=== PATIENT | male | born 2000 | race Caucasian/White ===

== ENCOUNTER 2019-07-09 14:38 | Outpatient (CLI) | payer OTHER, SELFPAY ==
--- NOTE | ~2019-07-09 | XR_ITS ---
XR foot RT min 3V DATE: 07/09/2019 15:02 INDICATION: Smashing injury of right foot. Dorsal pain, first toe/metatarsal area TECHNIQUE: 5 views COMPARISON: None FINDINGS: No fracture or dislocation, periosteal reaction or bone destruction. IMPRESSION: Negative Reviewed, dictated and finalized at location A. IMPRESSION: Negative
== END 2019-07-09 14:39 | disposition home or self-care (01) ==
PROVIDERS: PCP Family Medicine; Visit Provider Family Medicine
DX: S99.921A Unspecified injury of right foot, initial encounter (principal)
CPT/HCPCS: 73630

== ENCOUNTER 2021-01-26 16:56 | Emergency (ER) | payer OTHER, SELFPAY ==
[2021-01-26 17:06] VITALS: BP 142/98; PULSE 103; RESP 16; TEMP 37.1; O2SAT 100
--- NOTE | 2021-01-26 17:19 | ED.URI ---
HPI - URI/Sore Throat General Chief Complaint: Upper Respiratory Infection Stated Complaint: SORE THROAT Source: patient and RN notes reviewed Mode of arrival: ambulatory History of Present Illness HPI Narrative: This is a 20-year-old male who presented to urgent care with complaints a sore throat. Patient notes that the left side of his throat hurts more than the right he did take Tylenol with ibuprofen and DayQuil NyQuil with no relief. He also notes that his stepsister son was recently diagnosed with strep. Patient strep negative. The patient denies SOB, CP, palpitation, extremity numbness, lightheadedness, dizziness, constipation, diarrhea, chills, or fever. MD elicited complaint: sore throat Related Data Allergies Allergy/AdvReac Type Severity Reaction Status Date / Time No Known Allergies Allergy Mild Verified 07/09/19 13:22 Review of Systems Review of Systems: A 14 organ system Review of Systems was performed and pertinent positives included in the HPI, otherwise remaining ROS is negative. [facility] Past Medical History Medical History Asthma Unspecified injury of nose, initial encounter 02/06/2017 Family History Family History (Updated 01/26/21 @ 17:20 by SAGE Ochoa) Other Family history non-contributory No pertinent family history Social History Social History Smoking status: Never smoker Second hand tobacco smoke exposure: No Alcohol intake: never Alcohol use details: 6 beers consumed monthly Substance use: never Substance use type: does not use Exam Narrative: GENERAL: This is a well-nourished, well-developed patient, in no apparent distress. HEAD: normocephalic, atraumatic. EYES: PERRL. Sclera clear/white. Vision is grossly intact. EARS: External ears normal, auditory canals clear and without drainage, TMs normal without perforation. Hearing grossly intact. NOSE: External nose normal with no obvious nasal discharge, nares without redness, no rhinorrhea. THROAT: Mucous membranes moist, posterior pharynx edema with erythematous NECK: Neck supple, non-tender without lymphadenopathy, masses or thyromegaly. CARDIOVASCULAR: Regular rate and rhythm without murmurs, gallops, or rubs. RESPIRATORY: Clear to auscultation. Breath sounds equal bilaterally. No wheezes, rales, or rhonchi. GASTROINTESTINAL: Abdomen soft, non-tender, nondistended. Bowel sounds are active. No hepato-splenomegaly, or palpable masses. No guarding. SKIN: warm, intact with no suspicious lesions or rash, good texture and turgor. NEURO: awake, alert, and oriented to person, place and time. There were no obvious focal neurologic abnormalities. Steady gait EXTREMITIES: Normal range of motion. No edema. No calf tenderness. Negative Homans sign bilaterally. BACK: Nontender without deformity or crepitance. No flank tenderness. Course Course Emergency Course: Patient will be treated for otitis with amoxicillin 875 mg twice daily x7 days he has also been exposed to strep throat, amoxicillin will also treat strep throat even though his test is negative Vital Signs Vital signs: Vital Signs Temperature 98.7 F 01/26/21 17:06 Pulse Rate 103 H 01/26/21 17:06 Respiratory Rate 16 01/26/21 17:06 Blood Pressure 142/98 H 01/26/21 17:06 Pulse Oximetry 100 01/26/21 17:06 Temperature 98.7 F 01/26/21 17:06 Pulse Rate 103 H 01/26/21 17:06 Respiratory Rate 16 01/26/21 17:06 Blood Pressure 142/98 H 01/26/21 17:06 Pulse Oximetry 100 01/26/21 17:06 MDM - URI/Sore Throat Differential Diagnosis Differential diagnosis: Likely upper respiratory infection, sinusitis and pharyngitis Lab Data Labs: Strep Screen Presumptive Negative *(Reference Range: Negative)* Discharge Plan Discharge Clinical Impression: Pharyngitis Qualifiers
== END 2021-01-26 17:29 | disposition home or self-care (01) ==
PROVIDERS: Emergency Provider Nurse Practitioner; PCP Family Medicine
DX: J02.8 Acute pharyngitis due to other specified organisms (principal); J45.909 Unspecified asthma, uncomplicated
CPT/HCPCS: 87081; 87880; 99213; G0463

== ENCOUNTER 2022-08-17 13:35 | Emergency (ER) | payer OTHER, SELFPAY ==
[2022-08-17 13:48] VITALS: BP 113/65; PULSE 95; RESP 16; TEMP 36.6; O2SAT 99
--- NOTE | 2022-08-17 13:55 | ED.EAR ---
HPI - Ear Problem General Chief complaint: Ear Stated complaint: lt ear clogged Time Seen by Provider: 08/17/22 13:51 Source: patient and RN notes reviewed Mode of arrival: ambulatory Limitations: no limitations History of Present Illness HPI Narrative: Patient presents today complaining of left ear clogging that started this morning. Reports some mild pain with swallowing. States he had some sinus symptoms with congestion 1 week ago but this has since resolved. Denies drainage from the ear. He has not tried any [id number] treatment prior to arrival. Related Data Allergies Allergy/AdvReac Type Severity Reaction Status Date / Time No Known Allergies Allergy Mild Verified 08/17/22 13:47 Review of Systems Review of Systems: CONSTITUTIONAL: Denies body aches, fever, chills, or sweats. EYES: Denies visual changes, redness, or discharge. ENT: Denies rhinorrhea, congestion, sore throat.+ left ear pain and clogging CARDIOVASCULAR: Denies chest pain, palpitations, or edema. RESPIRATORY: Denies cough or dyspnea. GASTROINTESTINAL: Denies abdominal pain, nausea, vomiting, or diarrhea. GENITOURINARY: Denies dysuria or hematuria. SKIN: Denies rash, itching, or wounds. MUSCULOSKELETAL: Denies back pain, joint pain, or myalgia. NEUROLOGIC: Denies headache, numbness, tingling, or weakness. PSYCH: Denies depression or anxiety. [facility] Past Medical History Medical History Asthma Deviated nasal septum Unspecified injury of nose, initial encounter 02/06/2017 Family History Family History Other Family history non-contributory No pertinent family history Social History Social History Smoking status: Never smoker Second hand tobacco smoke exposure: No Alcohol intake: never Alcohol use details: 6 beers consumed monthly Substance use: never Substance use type: does not use Lack of Transportation: No Lack of Food: Never True Current Housing: I Have Housing Concerned About Future Housing: No Difficulty Paying Gas/Electric Bills: No Difficulty Paying for Meds: No Currently Unemployed: Decline to Answer Education: Decline to Answer Difficulty w/ Childcare or Family Care: Decline to Answer Comments At time of signature, I have reviewed and agree with nursing past medical, surgical, social and family history unless otherwise noted. Please see nursing chart for further information. There is no relevant family history pertinent to the presenting complaint Exam Narrative: GENERAL: Well-appearing, well-nourished, and in no acute distress. HEAD: Normocephalic, atraumatic. EYES: EOMI. No redness or drainage. Conjunctivae normal. ENT: Mucous membranes pink and moist. Nares clear. No rhinorrhea. Right TM normal. Left TM erythematous and bulging with purulent material. NECK: Normal AROM. CHEST: No respiratory distress. EXTREMITIES: Normal range of motion. No edema. SKIN: Warm, dry, no rash. Capillary refill normal. Normal skin turgor. NEURO: No focal deficits. Alert and oriented x3. Gait steady. PSYCH: Normal affect. No signs of depression or anxiety. Course Course Level of Care: Express Care Visit Vital Signs Vital signs: Vital Signs Temperature 97.8 F 08/17/22 13:48 Pulse Rate 95 08/17/22 13:48 Respiratory Rate 16 08/17/22 13:48 Blood Pressure 113/65 08/17/22 13:48 Pulse Oximetry 99 08/17/22 13:48 Temperature 97.8 F 08/17/22 13:48 Pulse Rate 95 08/17/22 13:48 Respiratory Rate 16 08/17/22 13:48 Blood Pressure 113/65 08/17/22 13:48 Pulse Oximetry 99 08/17/22 13:48 Reviewed Medical Decision Making [facility] Narrative Medical decision making narrative: Exam consistent with otitis media. Will treat with Augmentin. Anticipatory guidance given. Differential
== END 2022-08-17 14:02 | disposition home or self-care (01) ==
PROVIDERS: Emergency Provider Nurse Practitioner; PCP Family Medicine
DX: H66.002 Acute suppurative otitis media without spontaneous rupture of ear drum, left ear (principal); J45.909 Unspecified asthma, uncomplicated
CPT/HCPCS: 99213; G0463

== ENCOUNTER 2022-09-08 12:52 | Emergency (ER) | payer OTHER, SELFPAY ==
--- NOTE | 2022-09-08 12:55 | ED.URI ---
HPI - URI/Sore Throat General Chief Complaint: Upper Respiratory Infection Stated Complaint: sore throat Time Seen by Provider: 09/08/22 12:56 Source: patient Mode of arrival: ambulatory Limitations: no limitations History of Present Illness HPI Narrative: Nba is a 21-year-old male patient presenting to the clinic today with complaints of a sore throat and right swollen lymph node times x4 days. He reports no fever or chills. Denies any strep, COVID, or influenza exposure. MD elicited complaint: sore throat Related Data Home Medications Medication Instructions Recorded Confirmed No Home Medications 09/08/22 09/08/22 Allergies Allergy/AdvReac Type Severity Reaction Status Date / Time No Known Allergies Allergy Mild Verified 08/17/22 13:47 Review of Systems Review of Systems: Pertinent positives per HPI. Patient denies any fever, chills, rash, headache, visual changes, dizziness, cough, shortness of breath, chest pain, palpitations, nausea, vomiting, diarrhea, constipation, abdominal pain, or any urinary issues. PMF Past Medical History Medical History Asthma Deviated nasal septum Unspecified injury of nose, initial encounter 02/06/2017 Family History Family History Other Family history non-contributory No pertinent family history Social History Social History Smoking status: Never smoker Second hand tobacco smoke exposure: No Alcohol intake: never Alcohol use details: 6 beers consumed monthly Substance use: never Substance use type: does not use Lack of Transportation: No Lack of Food: Never True Current Housing: I Have Housing Concerned About Future Housing: No Difficulty Paying Gas/Electric Bills: No Difficulty Paying for Meds: No Currently Unemployed: Decline to Answer Education: Decline to Answer Difficulty w/ Childcare or Family Care: Decline to Answer Comments At the time of my signature, I reviewed and agree with the nursing past medical, surgical, social, and family history. There is no relevant family history pertinent to the patient complaint. Exam Narrative: General: Well-developed, well nourished, in no apparent distress Head: Normocephalic, atraumatic Eyes: Pupils equally round and reactive to light bilaterally, EOM intact, sclera and conjunctive clear, no discharge, lids normal Ears: TMs intact and clear, ear canals clear, no drainage, grossly hearing normal. Nose: Nares patent, clear nasal discharge, no inflammation, no sinus tenderness. Mouth: Oral pharynx red without lesions or masses, good dentition, MMM. PND Neck: Supple, trachea midline, enlargement of anterior cervical nodes, no thyroid masses or goiter palpable. Cardio: Regular rate and rhythm, s1 and s2 normal, no murmur appreciated. Resp: Clear to auscultation bilaterally, no rhonchi, rales, wheezing or rubs Course Course Emergency Course: Portions of this record may have been created with voice recognition software. Level of Care: Express Care Visit Vital Signs Vital signs: Vital signs reviewed MDM - URI/Sore Throat MDM Narrative Medical decision making narrative: At the time of visit patient is resting comfortably on the exam table. Strep screen was obtained and was negative in the clinic today. I suspect patient has viral pharyngitis Supportive measures were discussed with the patient he voiced understanding of discharge instructions agrees to treatment plan. Strep screen was sent for culture. Differential Diagnosis Differential diagnosis: Likely upper respiratory infection, otitis media, sinusitis, viral infection, bronchitis, influenza, pharyngitis and other (COVID) Discharge Plan Discharge Clinical Impression: Pharyngitis Qualifiers: Pharyngitis/tonsillitis etiology: u
[2022-09-08 13:00] VITALS: BP 123/76; PULSE 84; RESP 16; TEMP 36.6; O2SAT 100
[2022-09-08 13:05] VITALS: BP 123/76; PULSE 84; RESP 16; TEMP 36.6; O2SAT 100
== END 2022-09-08 13:15 | disposition home or self-care (01) ==
PROVIDERS: Emergency Provider Nurse Practitioner Family; PCP Family Medicine
DX: J02.9 Acute pharyngitis, unspecified (principal); J45.909 Unspecified asthma, uncomplicated
CPT/HCPCS: 87081; 87880; 99213; G0463